=== PATIENT | male | born 1985 | race Two or more races ===

== ENCOUNTER 2022-03-25 11:25 | Day surgery (SDC) | payer BC ==
[2022-03-24 15:12] VITALS: BMI 25.0
[2022-03-25] MEDS ORDERED: MIDAZOLAM HCL 2 MG/2 ML SINGLE DOSE VIAL ONE (12:14)
[2022-03-25] MEDS ORDERED: PROPOFOL 40 ML ONE (12:15)
[2022-03-25] MEDS ORDERED: ROPIVACAINE HCL 0.5% 30ML VIAL ONE (12:17)
[2022-03-25] MEDS ORDERED: ceFAZolin SODIUM 1 GM VIAL ONE (12:42)
[2022-03-25] MEDS ORDERED: ONDANSETRON 4 MG/2 ML VIAL ONE ×2 (12:42→14:28)
[2022-03-25] MEDS ORDERED: KETOROLAC TROMETHAMINE 30 MG/1 ML VIAL ONE (12:42)
[2022-03-25] MEDS ORDERED: DEXAMETHASONE SOD PHOSPHATE 4 MG/1 ML VIAL ONE (12:42)
[2022-03-25] MEDS ORDERED: PROPOFOL 20 ML ONE ×2 (12:46→13:28)
[2022-03-25] MEDS ORDERED: PROMETHAZINE HCL 25 MG/1 ML VIAL IVPUSH PRN (13:57)
[2022-03-25] MEDS ORDERED: oxyCODONE HCL 5 MG TABLET PO PRN ×2 (13:57)
[2022-03-25] MEDS ORDERED: ONDANSETRON 4 MG/2 ML VIAL IVPUSH PRN (13:57)
[2022-03-25] MEDS ORDERED: ACETAMINOPHEN 1000 MG/100 ML BAG IVPB ONE (13:57)
[2022-03-25] MEDS ORDERED: LACTATED RINGERS SOLUTION 1,000 ML IV SCH (14:00)
[2022-03-25] MEDS ORDERED: FENTANYL CITRATE/PF 50 MCG/ML VIAL ONE ×2 (14:01→14:08)
[2022-03-25] MEDS ORDERED: HYDROmorphone HCL/PF 1 MG/ML VIAL ONE ×2 (14:12→14:28)
[2022-03-25] MEDS: HYDROmorphone HCL/PF 1 MG/ML VIAL IVPUSH PRN ×4 (14:15→14:45)
[2022-03-25] MEDS ORDERED: oxyCODONE HCL 5 MG TABLET ONE (14:58)
[2022-03-25 15:04] VITALS: RESP 16
[2022-03-25 15:09] VITALS: TEMP 97.8
[2022-03-25 15:39] VITALS: BP 139/88; PULSE 71
== END 2022-03-25 16:45 | disposition home or self-care (01) ==
LOC: FASU 11:25
PROVIDERS: ATTEND Orthopaedic Surgery Hand Surgery
PROC: 0LN60ZZ Release Left Lower Arm and Wrist Tendon, Open Approach (ICD-10-PCS; 2022-03-25)
PROC: 0PSJ04Z Reposition Left Radius with Internal Fixation Device, Open Approach (ICD-10-PCS; principal; 2022-03-25 12:47)
DX: S52.572A Other intraarticular fracture of lower end of left radius, initial encounter for closed fracture (principal); X58.XXXA Exposure to other specified factors, initial encounter; Y93.9 Activity, unspecified; Y92.9 Unspecified place or not applicable
CPT/HCPCS: 25290; 25609; C1713; 73110-TC-LT-FY; 73130-TC-LT-FY; 94760